=== PATIENT | female | born 1945 | race Caucasian/White ===

== ENCOUNTER 2017-11-11 23:35 | Emergency (ER) | payer MEDICARE, BC ==
[~2017-11-11] VITALS: Ht 144.8 cm; Wt 54.0 kg
[2017-11-11] MEDS ORDERED: POLY17PO4 PO (23:59)
[2017-11-11] MEDS ORDERED: VERA360C6 PO (23:59)
[2017-11-11] MEDS ORDERED: LEVO75TA7 PO (23:59)
[2017-11-11] MEDS ORDERED: GABA-536 PO (23:59)
[2017-11-11] MEDS ORDERED: ROSU5TAB PO (23:59)
[2017-11-11] MEDS ORDERED: LIFI1DRO EACHEYE (23:59)
[2017-11-11] MEDS ORDERED: AMLO10TA2 PO (23:59)
[2017-11-11] MEDS ORDERED: CLON0.3P TD (23:59)
[2017-11-12] MEDS ORDERED: LIDOCAINE HCL 1% 20 ML VIAL TP ONE (01:30)
[2017-11-12] MEDS ORDERED: SODIUM BICARBONATE 4.2 % (NEUT) 5 ML VIAL TP ONE (01:30)
--- NOTE | 2017-11-12 01:55 | NUR ---
Patient discharged to home in stable conditon. Written and verbal after care instructions given. Patient verbalizes understanding of instructions.
== END 2017-11-12 01:56 | disposition home or self-care (01) ==
LOC: ER 23:38
DX: S01.01XA Laceration without foreign body of scalp, initial encounter (principal); I10 Essential (primary) hypertension; Z88.8 Allergy status to other drugs, medicaments and biological substances; Z79.899 Other long term (current) drug therapy; W01.198A Fall on same level from slipping, tripping and stumbling with subsequent striking against other object, initial encounter; Y93.89 Activity, other specified; Y92.89 Other specified places as the place of occurrence of the external cause; Y99.8 Other external cause status
CPT/HCPCS: 70450; 72125; A4217; A4663; J3490